=== PATIENT | female | born 1980 ===

== ENCOUNTER 2018-08-13 16:43 | Emergency (ER) | payer BC ==
[2018-08-13] MEDS ORDERED: Sodium Chloride 0.9% 1,000 ML IV STA ×2 (17:11→19:30)
--- NOTE | 2018-08-13 17:31 | ED PDOC ---
HPI: Abdomen Time Seen by Provider: 08/13/18 17:04 Chief Complaint (Nursing): Abdominal Pain Chief Complaint (Provider): Abdominal Pain History Per: Patient History/Exam Limitations: no limitations Onset/Duration Of Symptoms: Hrs (this morning ) Current Symptoms Are (Timing): Still Present Additional Complaint(s): Michelle Cuadra is a 38 year old female with no past medical history, who presents to the emergency department complaining of abdominal pain and nausea s urvashi this morning. Patient states that this feels like severe gas. She denies vomiting but also states that she has not eaten any food. PMD: No provider LMP: x27 days ago Last Menstral Period: x27 days Past Medical History Reviewed: Historical Data, Nursing Documentation, Vital Signs Vital Signs: Last Vital Signs Temp 98.4 F 08/13/18 16:57 Pulse 111 H 08/13/18 16:57 Resp 15 08/13/18 16:57 BP 124/75 08/13/18 16:57 Pulse Ox 100 08/13/18 16:57 - Medical History PMH: No Chronic Diseases - Surgical History Surgical History: No Surg Hx - Family History Family History: States: Unknown Family Hx - Immunization History Hx Tetanus Toxoid Vaccination: No Hx Influenza Vaccination: No Hx Pneumococcal Vaccination: No - Allergies Allergies/Adverse Reactions: Allergies Allergy/AdvReac Type Severity Reaction Status Date / Time No Known Allergies Allergy Verified 08/13/18 16:58 Review of Systems ROS Statement: Except As Marked, All Systems Reviewed And Found Negative Gastrointestinal: Positive for: Nausea, Abdominal Pain. Negative for: Vomiting Physical Exam - Reviewed Nursing Documentation Reviewed: Yes Vital Signs Reviewed: Yes - Physical Exam Appears: Positive for: Non-toxic, No Acute Distress Head Exam: Positive for: ATRAUMATIC, NORMOCEPHALIC Skin: Positive for: Normal Color, Warm, Dry Eye Exam: Positive for: Normal appearance, EOMI, PERRL ENT: Positive for: Normal ENT Inspection Neck: Positive for: Normal, Painless ROM, Supple Cardiovascular/Chest: Positive for: Regular Rate, Rhythm. Negative for: Murmur Respiratory: Positive for: Normal Breath Sounds. Negative for: Respiratory Distress Gastrointestinal/Abdominal: Positive for: Normal Exam, Soft. Negative for: Tenderness Back: Positive for: Normal Inspection. Negative for: L CVA Tenderness, R CVA Tenderness, Vertebral Tenderness Extremity: Positive for: Normal ROM. Negative for: Pedal Edema, Deformity Neurologic/Psych: Positive for: Alert, Oriented. Negative for: Motor/Sensory Deficits - Laboratory Results Result Diagrams: 08/13/18 17:35 08/13/18 17:35 - ECG O2 Sat by Pulse Oximetry: 100 (RA) Pulse Ox Interpretation: Normal Medical Decision Making Medical Decision Making: Time: 1710 A/P: Work up for gastroenteritis, basic labs, IV fluids, UA, Zofran, Fomatidine and reassess patient. --CMP --CBC with differential --Famotidine 40 mg IVP --Toradol 15 mg iVP --Sodium chloride 1,000 ml --Zofran inj 4 mg IVP --Urinalysis Time: 1899 -- On reevaluation, patient has worsening pain that is now radiating to the right side of abdomen and is coming in waves. -- Patient is feeling like she is spiking a fever. -- On repeat physical exam, patient is warm to touch and has right CVA tenderness. -- CT abdomen without contrast was ordered. Work up for stone -- Labs show elevated WBC count Time: 1899 --Patient signed out to Dr. Mcdonald, pending CT. Scribe Attestation: Documented by Rey Mohan, acting as a scribe for Shruthi Reynolds MD. Provider Scribe Attestation: All medical record entries made by the Scribe were at my direction and personally dictated by me. I have reviewed the chart and agree that the record accurately reflects my personal performance of the history, physical exam, medical decision making, and the department course for this patient. I have also personally directed, reviewed, and agree with the discharge instructions and disposition. Disposition - Clinical Impression Clinical Impression: Gastritis, Ovarian cyst - Disposition Referrals: [facility] [Outside] Disposition: Transfer of Care Disposition Time: 19:00 Condition: IMPROVED Additional Instructions: Please followup with your GUT CARRIER this week. Increase hydration and rest while symptoms last. Follow up with primary medical doctor. Return to the emergency department if symptoms worsen or if new symptoms develop. Instructions: Ovarian Cysts, Gastritis, Viral Gastroenteritis, Adult (DC) Forms: [employer] (Citizen [place]) Print Language: TURKMEN
[2018-08-13 18:09] LABS: BASO % 0.2 % (0.0-2.0); HEMOGLOBIN 12.9 g/dL (12.0-16.0); LYMPH # 0.9 K/uL (1.0-4.3); LYMPH % 5.1 % (20.0-40.0); MEAN CELL VOLUME 91.1 fl (81.0-99.0); MEAN CORPUSCULAR HGB CONC 32.9 g/dL (33.0-37.0); MEAN PLATELET VOLUME 8.1 fl (7.2-11.7); MONO # 0.6 K/uL (0.0-0.8); MONO % 3.4 % (0.0-10.0); NEUT # 16.7 K/uL (1.8-7.0); NEUT % 91.3 % (50.0-75.0); PLATELET COUNT 223 K/uL (130-400); RED CELL DISTRIBUTION WIDTH 13.3 % (11.5-14.5); WHITE BLOOD COUNT 18.3 K/uL (4.8-10.8)
[2018-08-13 18:21] LABS: ALB/GLOB RATIO 1.6 (1.0-2.1); ALBUMIN 4.3 g/dL (3.5-5.0); ALT/SGPT 28 U/L (9-52); AST/SGOT 23 U/L (14-36); BLOOD UREA NITROGEN 12 mg/dl (7-17); GFR NON-AFRICAN AMERICAN > 60
[2018-08-13 18:32] LABS: SQUAMOUS EPITHIAL 1 /hpf (0-5); URINE BACTERIA RARE (<OCC); URINE BILIRUBIN NEGATIVE (NEGATIVE); URINE BLOOD SMALL (NEGATIVE); URINE CLARITY SLIGHTY-CLOUDY (Clear); URINE COLOR YELLOW (YELLOW); URINE GLUCOSE (UA) NEG (NEGATIVE); URINE LEUKOCYTE ESTERASE NEG Leu/uL (Negative); URINE PROTEIN NEGATIVE (NEGATIVE); URINE UROBILINOGEN 0.2-1.0 mg/dL (0.2-1.0)
[2018-08-13 19:18] LABS: BANDS 9 % (0-2); LYMPHOCYTE 5 % (20-50); MICROCYTOSIS SLIGHT; MONOCYTE 4 % (0-10); NEUTROPHIL 82 % (42-75); PLATELET ESTIMATE NORMAL (NORMAL); TOTAL CELLS COUNTED 100
[2018-08-13 19:19] LABS: TEARDROP CELLS SLIGHT
--- NOTE | 2018-08-13 19:35 | ED PDOC ---
- Laboratory Results Result Diagrams: 08/13/18 17:35 08/13/18 17:35 Lab Results: Total Bilirubin 0.3 mg/dl (0.2-1.3) 08/13/18 17:35 AST 23 U/L (14-36) 08/13/18 17:35 ALT 28 U/L (9-52) 08/13/18 17:35 Alkaline Phosphatase 46 U/L (38-126) 08/13/18 17:35 Total Protein 7.0 G/DL (6.3-8.2) 08/13/18 17:35 Albumin 4.3 g/dL (3.5-5.0) 08/13/18 17:35 Globulin 2.7 gm/dL (2.2-3.9) 08/13/18 17:35 Albumin/Globulin Ratio 1.6 (1.0-2.1) 08/13/18 17:35 Urine Color Yellow (YELLOW) 08/13/18 17:35 Urine Clarity Slighty-cloudy (Clear) 08/13/18 17:35 Urine pH 5.0 (5.0-8.0) 08/13/18 17:35 Ur Specific [place] 1.025 (1.003-1.030) 08/13/18 17:35 Urine Protein Negative mg/dL (NEGATIVE) 08/13/18 17:35 Urine Glucose (UA) Neg mg/dL (NEGATIVE) 08/13/18 17:35 Urine Ketones Trace mg/dL (NEGATIVE) 08/13/18 17:35 Urine Blood Small (NEGATIVE) 08/13/18 17:35 Urine Nitrate Negative (NEGATIVE) 08/13/18 17:35 Urine Bilirubin Negative (NEGATIVE) 08/13/18 17:35 Urine Urobilinogen 0.2-1.0 mg/dL (0.2-1.0) 08/13/18 17:35 Ur Leukocyte Esterase Neg [place]/uL (Negative) 08/13/18 17:35 Urine RBC (Auto) 4 /hpf (0-3) H 08/13/18 17:35 Urine Microscopic WBC 2 /hpf (0-5) 08/13/18 17:35 Ur Squamous Epith Cells 1 /hpf (0-5) 08/13/18 17:35 Urine Bacteria Rare (<OCC) 08/13/18 17:35 - ECG O2 Sat by Pulse Oximetry: 100 (RA) Pulse Ox Interpretation: Normal Medical Decision Making Medical Decision Making: Time: 1899 --Patient care endorsed by Dr. Reynolds, pending CT abdomen. 23:21 CT Abd FINDINGS: LOWER BREASTS: There is noted to have been previous bilateral breast augmentation. LUNG BASES: The lung bases appear clear. No pleural effusions are seen. LIVER: Unremarkable. GALLBLADDER AND BILE DUCTS: The gallbladder appears within normal limits. No radioopaque gallstones are seen. No biliary ductal dilatation is evident. PANCREAS: Unremarkable. SPLEEN: Unremarkable. ADRENAL GLANDS: Unremarkable. KIDNEYS, URETERS, AND BLADDER: The kidneys appear within normal limits. There is no hydronephrosis or hydroureter. No urinary calculi are seen. The urinary bladder is normal in size and configuration. STOMACH AND BOWEL: Unremarkable appearance.No evidence of bowel obstruction. APPENDIX: The appendix is partially obscured by right paracolic gutter fluid. PERITONEUM: A small volume of abdominal and pelvic fluid is noted. The fluid ranges in density between 34.5-37.9 HU. These density measurements could be compatible with hemorrhage. No free air. LYMPH NODES: No lymphadenopathy is evident. REPRODUCTIVE: Possibility of complex right ovarian lesion, possibly ruptured. Consider correlation with pelvic US. VASCULATURE: No evidence of abdominal aortic aneurysm. BONES: No aggressive appearing osseous lesion. No acute osseous pathology evident. Streak artifact arises from a right femoral intramedullary mateo. IMPRESSION: 1. A small volume of intraperitoneal fluid is present. Density measurements indicate a could be compatible with hemorrhage. 2. Possibility of complex right ovarian lesion, possibly ruptured. Consider correlation with pelvic US. 130 eport Submission Date: Aug 14, 2018 1:38:51 AM EST Name: ISAURA WELLS Exam Date: Aug 14, 2018 12:10:13 AM EST Modality Type: SD\US\SR Description: US - PELVIC TRANSVAGINAL Gender: F Laterality: Not applicable : 82 Referring Physician: Mat Mcdonald EXAM: US Pelvis, Complete Transvaginal and Transabdominal COMPARISON: 08/13/18 CT. CLINICAL HISTORY: PELVIS PAIN, RECENT CT TECHNIQUE: Transvaginal and transabdominal pelvic ultrasound (complete) with image documentation. FINDINGS: ENDOMETRIUM: Normal thickness. 11 mm. UTERUS/CERVIX: The uterus appears within normal limits. 7 x 5.8 x 3.9 cm. No uterine fibroid or other mass evident. RIGHT OVARY: Complex right ovarian tissue measuring 6.3 x 4.6 x 4.5 cm Not identified. FREE FLUID: Moderate amount of complex free fluid especially in the right adnexa. IMPRESSION: Complex right ovarian tissue measuring 6.3 x 4.6 x 4.5 cm Moderate amount of complex free fluid especially in the right adnexa. Electronically signed on Aug 14, 2018 1:38:51 AM EST by: Angel Ro M.D., EVELYN Certified By [facility] Fellowship Trained MRI and CT Specialist Patient states she's feeling better Discussed case with Dr. Urbano, OB, who states complex fluid is likely related to blood with clots, suitable for outpatient followup Will d/c home, strongly advised patient to followup with her OB, results given Well appearing upon discharge Scribe Attestation: Documented by Rey Mohan, acting as a scribe for Mat Mcdonald MD. Provider Scribe Attestation: All medical record entries made by the Scribe were at my direction and personally dictated by me. I have reviewed the chart and agree that the record accurately reflects my personal performance of the history, physical exam, medical decision making, and the department course for this patient. I have also personally directed, reviewed, and agree with the discharge instructions and disposition. Disposition - Clinical Impression Clinical Impression: Gastritis, Ovarian cyst - POA Present On Arrival: None - Disposition Referrals: [facility] [Outside] Disposition: Routine/Home Disposition Time: 02:00 Condition: IMPROVED Additional Instructions: Please followup with your SENIOR ARCHITECT this week. Increase hydration and rest while symptoms last. Follow up with primary medical doctor. Return to the emergency department if symptoms worsen or if new symptoms develop. Instructions: Ovarian Cysts, Gastritis, Viral Gastroenteritis, Adult (DC) Forms: [employer] (Slovak) Print Language: AZERI
[2018-08-13 19:38] VITALS: RESP 18
[2018-08-13 20:34] LABS: VENOUS BLOOD GAS BASE EXCESS -1.8 mmol/L (0.0-2.0); VENOUS BLOOD GAS PCO2 39 mmHg (40-60); VENOUS BLOOD GAS PO2 20 mm/Hg (30-55); VENOUS BLOOD PH 7.38 (7.32-7.43)
[2018-08-13] MEDS ORDERED: Iohexol 300 100 ML IJ ONE (21:35)
[2018-08-13 23:30] VITALS: O2SAT 100
[2018-08-14 02:07] VITALS: BP 116/69; PULSE 80; TEMP 98
--- NOTE | 2018-08-14 12:57 | CT ---
Date of service: 08/13/2018 PROCEDURE: CT Abdomen and Pelvis . HISTORY: Right-sided abdominal pain COMPARISON: No prior study available comparison TECHNIQUE: Contiguous axial images of the abdomen and pelvis performed of following intravenous injection of approximately 100 cc Omnipaque 300 contrast material. Additional 2D sagittal and coronal reformats generated. Radiation dose: Total exam DLP = 483.36 mGy-cm. This CT exam was performed using one or more of the following dose reduction techniques: Automated exposure control, adjustment of the mA and/or kV according to patient size, and/or use of iterative reconstruction technique. FINDINGS: LOWER THORAX: Bilateral breast prostheses present Heart size is within range of normal. No significant pericardial effusion.. Tiny hiatal hernia. Minor passive/dependent type atelectasis both posterior lower lung cassidy. The the. Mild chronic atelectasis and or scarring changes seen in the middle lobe and lingular regions. LIVER: The liver exhibits relatively normal size measuring just over 16 cm in CC dimension. Liver exhibits mild diffuse fatty hepatic infiltration. No obvious hepatic mass collection or calcification. Portal and splenic veins are opacified. GALLBLADDER AND BILE DUCTS: Gallbladder physiologically distended. No evidence of intraluminal gallbladder calculi. PANCREAS: Unremarkable. No mass. No ductal dilatation. SPLEEN: Unremarkable. No splenomegaly. ADRENALS: No adrenal lesions. KIDNEYS AND URETERS: Kidneys demonstrate symmetric nephrograms. No evidence of nephrolithiasis or hydronephrosis. BLADDER: Urinary bladder is physiologically distended. No evidence of intraluminal urinary bladder calculi. REPRODUCTIVE: Uterus appears unremarkable. Note made of what may represent a complex and/or hemorrhagic right-sided adnexal cyst measuring approximately 2.3 x 2.0 cm and exhibits a an irregular hyperdense rim. There is a large amount of hyperdense ascites present within the pelvis and to a lesser degree upper abdominal ascites on consistent with proteinaceous content likely representing hemorrhage from a ruptured hemorrhagic cyst . However clinical correlation recommended. Follow-up of pelvic ultrasound is suggested. APPENDIX: What appears to represent a incompletely visualized appendix seen on axial series 3 image number [id number] itself appears unremarkable though does appear to be surrounded by hyperdense ascites. BOWEL: Evaluation of the bowel is limited due to the lack of oral contrast material. Stomach is incompletely distended. Visualized loops of small bowel exhibit normal contour and caliber. No evidence of acute mechanical small bowel obstruction. Most of the distal transverse and descending colon collapsed and therefore difficult to evaluate. Stool and air seen within the cecum at ascending as well as the sigmoid colon to the level of the rectum. PERITONEUM: As above. No gross free intraperitoneal air. LYMPH NODES: Unremarkable. No enlarged lymph nodes. VASCULATURE: Unremarkable. No aortic aneurysm. No aortic atherosclerotic calcification or mural plaque present. BONES: The visualized lower thoracic and lumbar vertebral bodies are unremarkable with no evidence of acute or chronic compression fractures nor retropulsed fragments. OTHER FINDINGS: None. IMPRESSION: Possible hemorrhagic ovarian cyst with a large amount of hyperdense on ascites within the pelvis and to a lesser degree remaining abdomen of. Follow-up pelvic ultrasound recommended. Fatty infiltration.
--- NOTE | 2018-08-14 14:49 | US ---
Date of service: 08/14/2018 HISTORY: ovarian cyst with rupture COMPARISON: CT abdomen and pelvis performed the same day. TECHNIQUE: Transvaginal pelvic ultrasound was performed. FINDINGS: UTERUS: Measures 7.0 x 3.9 x 5.8 cm. Anteverted, normal in size and appearance. No fibroid or other mass lesion seen. ENDOMETRIUM: Measures 11 mm in diameter. Normal in appearance. CERVIX: No cervical abnormality identified. RIGHT OVARY: Enlarged and measures 6.3 x 4.6 x 4.5 cm. There is an apparent heterogeneous 3.3 x 2.2 cm complicated/hemorrhagic cyst. Normal flow. LEFT OVARY: Obscured by bowel gas. FREE FLUID: There is hemorrhagic free fluid in the pelvis. OTHER FINDINGS: None. IMPRESSION: Apparent 3.3 x 2.2 cm complicated/hemorrhagic cyst in the right ovary and hemorrhagic fluid in the pelvis most compatible with ruptured hemorrhagic cyst. Short-term follow-up ultrasound is recommended to assess stability/resolution. A preliminary report was provided by [email or web address].
== END 2018-08-14 02:06 | disposition home or self-care (01) ==
LOC: H.ER 16:43
DX: N83.201 Unspecified ovarian cyst, right side (principal); K29.70 Gastritis, unspecified, without bleeding
CPT/HCPCS: 74177; 76830; 76856; 80053; 81003; 81025; 82803; 85025; 87040; 96361; 96374; 96375; 99285; J1885; J2405; J7030; Q9967